=== PATIENT | male | born 1930 | race Caucasian/White ===

== ENCOUNTER 2017-10-26 02:52 | Observation (INO) | payer MEDICARE ==
[~2017-10-26] VITALS: Ht 177.8 cm; Wt 79.3 kg
[~2017-10-26 02:52] MED LIST: AMLO1TAB33 PO; ASPI-555 PO; B CO1TAB4 PO; FURO20TA4 PO; PRAV40TA3 PO; TERA5CAP4 PO
[2017-10-26] MEDS ORDERED: SODIUM CHLORIDE 0.9% 1000ML 2,000 ML IV ONE (03:14)
[2017-10-26] MEDS ORDERED: SODIUM CHLORIDE 0.9% 500ML 500 ML IV ONE (03:15)
[2017-10-26] MEDS ORDERED: ACETAMINOPHEN EXTRA STRENGTH 500 MG TABLET ONE (03:20)
[2017-10-26 03:24] LABS: HEMATOCRIT 43.3 % (42-54); MEAN CORPUSCULAR HEMOGLOBIN 33.9 pg (27.0-33.0); MEAN CORPUSCULAR HGB CONC 34.6 g/dL (32.0-36.0); MEAN CORPUSCULAR VOLUME 98.1 fL (79-99); PLATELET COUNT (AUTO) 134 K/uL (130-400); RED BLOOD CELL COUNT(AUTO) 4.41 MIL/uL (4.50-6.20)
[2017-10-26 03:25] LABS: CREATININE 1.1 mg/dL (0.5-1.5); POTASSIUM 3.7 mmol/L (3.5-5.1)
[2017-10-26] MEDS ORDERED: CEFTRIAXONE SODIUM 1 GM ONE ×2 (03:40→07:56)
[2017-10-26 03:47] LABS: ALBUMIN 3.5 g/dL (3.5-5.0); BILIRUBIN,TOTAL 0.5 mg/dL (0.2-1.0); CREATINE KINASE MB 0.7 ng/mL (0.5-3.6); TOTAL PROTEIN, SERUM 6.7 g/dL (6.0-8.3); TROPONIN I 0.05 ng/mL (0.00-0.06)
[2017-10-26 04:01] LABS: INR 1.02 (0.85-1.15); PARTIAL THROMBOPLASTIN TIME 30.1 SEC (26.3-35.5); PROTHROMBIN TIME 10.7 SEC (9.6-11.6)
[2017-10-26 04:08] LABS: BAND NEUTROPHILS % (MANUAL) 10 % (0-2); LYMPHOCYTES % (MANUAL) 7 % (22-44); MAN.DIFF COMMENT-IMPRESSION MANUAL DIFFERENTIAL; MONOCYTES % (MANUAL) 14 % (2-9); SEGMENTED NEUTROPHILS % 69 % (40-70)
[2017-10-26 04:10] LABS: PLATELET MORPHOLOGY COMMENT ADEQUATE
[2017-10-26 05:11] LABS: APPEARANCE,URINE Clear (CLEAR); BILIRUBIN,URINE Negative (NEGATIVE); COLOR,URINE Yellow (YELLOW); GLUCOSE, URINE (UA) Negative (NEGATIVE); KETONES,URINE Negative (NEGATIVE); LEUKOCYTE ESTERASE ,URINE Negative (NEGATIVE); NITRATE,URINE Negative (NEGATIVE); OCCULT BLOOD,URINE Large (NEGATIVE); PROTEIN,URINE Negative (NEGATIVE); UROBILINOGEN,URINE 0.2 mg/dL (0.2-1.0)
[2017-10-26 05:23] LABS: BACTERIA,URINE None Seen /HPF (None Seen); RBC,URINE 26-50 /HPF (0-1); SQUAMOUS EPITHELIAL CELL,UR Rare /LPF (0-2); WBC,URINE None Seen /HPF (0-1)
[2017-10-26] MEDS ORDERED: SODIUM CHLORIDE 0.9% 1000ML 1,000 ML IV ONE (06:16)
[2017-10-26] MEDS ORDERED: POTASSIUM CHLORIDE 20 MEQ ERTAB PO PRN (07:00)
[2017-10-26] MEDS ORDERED: MAG HYDROX/AL HYDROX/SIMETH ES 30 ML SUSP UDCUP PO PRN (07:00)
[2017-10-26] MEDS ORDERED: 1/2 NORMAL SALINE 1,000 ML IV SCH (07:00)
[2017-10-26] MEDS ORDERED: ONDANSETRON HCL 4 MG/2 ML VIAL IV PRN (07:00)
[2017-10-26] MEDS ORDERED: LIDOCAINE HCL-MPF 1% 2ML VIAL IVP PRN (07:00)
[2017-10-26] MEDS ORDERED: GUAIFENESIN-DM 200/20 MG 10 ML PO PRN (07:00)
[2017-10-26] MEDS ORDERED: CEFTRIAXONE 2GM+NS 100ML 100 ML IV SCH (07:00)
[2017-10-26] MEDS ORDERED: ACETAMINOPHEN 325 MG TAB PO PRN ×2 (07:00)
[2017-10-26] MEDS ORDERED: LACTULOSE 20 GM/30 ML UDCUP PO PRN (07:00)
[2017-10-26] MEDS ORDERED: POTASSIUM CHLORIDE 10% ELIXIR 20 MEQ/15 ML UDCUP PO PRN (07:00)
[2017-10-26] MEDS ORDERED: POTASSIUM CHLORIDE 20MEQ/100ML 100 ML IV PRN (07:00)
[2017-10-26] MEDS: CEFTRIAXONE SODIUM 2 GM VIAL IVP SCH (07:15)
[2017-10-26] MEDS: WATER FOR INJECTION,STERILE 20 ML VIAL IJ SCH (07:15)
[2017-10-26] MEDS ORDERED: ALBUTEROL SULFATE 0.083% 2.5 MG/3 ML INH IH ONE (07:17)
[2017-10-26] MEDS: ALBUTEROL SULFATE 0.083% 2.5 MG/3 ML INH IH PRN ×2 (07:32→22:09)
[2017-10-26] MEDS ORDERED: ENOXAPARIN SODIUM 30 MG/0.3 ML SQ ONE (07:56)
[2017-10-26] MEDS ORDERED: PANTOPRAZOLE SODIUM 40 MG TABLET.DR PO ONE (07:57)
[2017-10-26] MEDS ORDERED: ASPIRIN 325MG EC TAB 325 MG TABLET.DR PO ONE (07:58)
[2017-10-26] MEDS ORDERED: LISINOPRIL 5 MG TABLET ONE (08:26)
[2017-10-26] MEDS ORDERED: ATORVASTATIN CALCIUM 10 MG TABLET PO SCH (09:00)
[2017-10-26] MEDS: PANTOPRAZOLE SODIUM 40 MG TABLET.DR PO SCH (09:00)
[2017-10-26] MEDS: ENOXAPARIN SODIUM 30 MG/0.3 ML SQ SCH (09:00)
[2017-10-26] MEDS: ASPIRIN 81 MG EC TAB PO SCH (09:00)
[2017-10-26] MEDS: ATORVASTATIN CALCIUM 10 MG TABLET PO SCH (09:00)
[2017-10-26] MEDS ORDERED: AMLODIPINE BESYLATE 5 MG TAB PO PRN (10:00)
[2017-10-26] MEDS ORDERED: AMLODIPINE BESYLATE 5 MG TAB PO ONE (11:39)
[2017-10-26] MEDS ORDERED: 1/2 NORMAL SALINE 1,000 ML IV ONE (11:45)
[2017-10-26] MEDS ORDERED: LORAZEPAM 1 MG TABLET ONE (12:47)
[2017-10-26] MEDS ORDERED: LORAZEPAM 0.5 MG TABLET PO PRN (13:00)
[2017-10-26] MEDS: BUSPIRONE HCL 5 MG TABLET PO SCH ×2 (14:00→21:56)
[2017-10-26 16:00] VITALS: BP 181/78
[2017-10-26 20:00] VITALS: BP 188/59
[2017-10-26 21:00] VITALS: BP 207/89
[2017-10-26] MEDS ORDERED: TERAZOSIN HCL 5 MG CAPSULE PO SCH (21:45)
[2017-10-26] MEDS ORDERED: TERAZOSIN HCL 5 MG CAPSULE ONE (21:52)
[2017-10-26 23:42] VITALS: BP_SYST 118; BP_SYST 174; BP_DIAS 58; BP_DIAS 72
[2017-10-27] VITALS (8 sets, daily range): BP systolic 110–188; BP diastolic 50–89
[2017-10-27] MEDS: ALBUTEROL SULFATE 0.083% 2.5 MG/3 ML INH IH PRN ×3 (01:41→10:47)
[2017-10-27] MEDS ORDERED: CEFTRIAXONE SODIUM 1 GM ONE (06:19)
[2017-10-27] MEDS: CEFTRIAXONE SODIUM 2 GM VIAL IVP SCH (06:32)
[2017-10-27] MEDS: WATER FOR INJECTION,STERILE 20 ML VIAL IJ SCH (06:32)
[2017-10-27] MEDS: ATORVASTATIN CALCIUM 10 MG TABLET PO SCH (08:36)
[2017-10-27] MEDS: ASPIRIN 81 MG EC TAB PO SCH (08:36)
[2017-10-27] MEDS: PANTOPRAZOLE SODIUM 40 MG TABLET.DR PO SCH (08:36)
[2017-10-27] MEDS: BUSPIRONE HCL 5 MG TABLET PO SCH (08:36)
[2017-10-27] MEDS: ENOXAPARIN SODIUM 30 MG/0.3 ML SQ SCH (08:37)
[2017-10-27] MEDS ORDERED: TERA2CAP4 PO (08:48)
[2017-10-27] MEDS ORDERED: CEPH500C2 PO (08:59)
[2017-10-27] MEDS ORDERED: BUSP10TA3 PO (08:59)
[2017-10-27] MEDS: CEPHALEXIN 500 MG CAPSULE PO SCH ×2 (09:00→17:19)
[2017-10-27] MEDS: AMLODIPINE BESYLATE 5 MG TAB PO SCH ×2 (09:00→17:19)
[2017-10-27 09:30] LABS: HEMATOCRIT 42.8 % (42-54); MEAN CORPUSCULAR HEMOGLOBIN 33.5 pg (27.0-33.0); MEAN CORPUSCULAR HGB CONC 34.6 g/dL (32.0-36.0); MEAN CORPUSCULAR VOLUME 96.9 fL (79-99); PLATELET COUNT (AUTO) 137 K/uL (130-400); RED BLOOD CELL COUNT(AUTO) 4.42 MIL/uL (4.50-6.20); RED CELL DISTRIBUTION WIDTH 13.3 % (11.0-15.5)
[2017-10-27] MEDS: LOSARTAN 100 MG TABLET PO SCH (17:19)
[2017-10-27] MEDS: TERAZOSIN HCL 2 MG CAPSULE PO SCH (21:00)
[2017-10-27] MEDS: CLONIDINE HCL 0.1 MG TABLET PO PRN (21:06)
[2017-10-27] MEDS: BUSPIRONE HCL 5 MG TABLET PO PRN (21:07)
[2017-10-28] VITALS (7 sets, daily range): BP systolic 141–186; BP diastolic 66–84
[2017-10-28] MEDS: CEPHALEXIN 500 MG CAPSULE PO SCH ×3 (00:03→16:58)
[2017-10-28] MEDS ORDERED: AMLODIPINE BESYLATE 5 MG TAB PO PRN (02:30)
[2017-10-28] MEDS ORDERED: PHARMACY COMMUNICATION MISC SCH (03:00)
[2017-10-28] MEDS: CLONIDINE HCL 0.1 MG TABLET PO PRN ×2 (03:43→21:14)
[2017-10-28] MEDS: LOSARTAN 100 MG TABLET PO SCH ×2 (09:00→16:58)
[2017-10-28] MEDS: ENOXAPARIN SODIUM 30 MG/0.3 ML SQ SCH (11:00)
[2017-10-28] MEDS: ASPIRIN 81 MG EC TAB PO SCH (11:01)
[2017-10-28] MEDS: ATORVASTATIN CALCIUM 10 MG TABLET PO SCH (11:01)
[2017-10-28] MEDS: AMLODIPINE BESYLATE 5 MG TAB PO SCH (11:01)
[2017-10-28] MEDS: PANTOPRAZOLE SODIUM 40 MG TABLET.DR PO SCH (11:02)
[2017-10-28] MEDS: TERAZOSIN HCL 2 MG CAPSULE PO SCH (21:00)
[2017-10-28] MEDS: BUSPIRONE HCL 5 MG TABLET PO PRN (21:13)
== END 2017-10-28 22:50 ==
LOC: EDH 02:52 → EDHIP 06:00 → 4CH 15:04
PROVIDERS: ADMIT Internal Medicine; ATTEND Internal Medicine
DX: E86.0 Dehydration (principal); R53.1 Weakness; B34.9 Viral infection, unspecified; I25.10 Atherosclerotic heart disease of native coronary artery without angina pectoris; I13.0 Hypertensive heart and chronic kidney disease with heart failure and stage 1 through stage 4 chronic kidney disease, or unspecified chronic kidney disease; I50.20 Unspecified systolic (congestive) heart failure; N18.9 Chronic kidney disease, unspecified; Z66 Do not resuscitate; E78.2 Mixed hyperlipidemia; I49.5 Sick sinus syndrome; F03.90 Unspecified dementia, unspecified severity, without behavioral disturbance, psychotic disturbance, mood disturbance, and anxiety; Z86.73 Personal history of transient ischemic attack (TIA), and cerebral infarction without residual deficits; Z87.438 Personal history of other diseases of male genital organs; Z82.49 Family history of ischemic heart disease and other diseases of the circulatory system
CPT/HCPCS: 36415 ×2; 71045; 80053; 81001; 82550; 82553; 83605; 83874; 84484; 85025; 85027; 85610; 85730; 87040 ×2; 87088; 87804 ×2; 94640 ×5; 94664; 96361 ×2; 96372 ×2; 96374; 97116 ×2; 97161; 99285; G0378 ×65; G8978; G8979; G8980; G8981; G8982; G8983; J0696 ×6; J1650 ×3; J7030 ×2; J7040

== ENCOUNTER 2018-06-22 10:31 | Emergency (ER) | payer MEDICARE ==
[~2018-06-22 10:31] MED LIST changes: +BUSP10TA3 PO; +CEPH500C2 PO; -FURO20TA4 PO; +TERA2CAP4 PO; -TERA5CAP4 PO
== END 2018-06-22 12:43 | disposition home or self-care (01) ==
LOC: EDH 10:31
DX: M54.32 Sciatica, left side (principal); M25.552 Pain in left hip; E78.5 Hyperlipidemia, unspecified; I10 Essential (primary) hypertension; Z88.8 Allergy status to other drugs, medicaments and biological substances; Z98.890 Other specified postprocedural states
CPT/HCPCS: 73502